=== PATIENT | male | born 1975 | race Caucasian/White ===

== ENCOUNTER 2016-07-30 05:21 | Emergency (ER) | payer BC, OTHER ==
[~2016-07-30] VITALS: Ht 180.3 cm; Wt 100.0 kg
[2016-07-30 05:24] VITALS: Ht 180.3 cm; Wt 100.0 kg
[2016-07-30] MEDS ORDERED: BACTDS PO (06:29)
[2016-07-30] MEDS ORDERED: IBUP-1542 PO (06:29)
[2016-07-30] MEDS ORDERED: CEPH-443 PO (06:29)
[2016-07-30] MEDS ORDERED: TRIMETHOPRIM/SULFAMETHOX (DS) TAB PO ONE (06:30)
[2016-07-30] MEDS ORDERED: CEPHALEXIN 500 MG CAP PO ONE (06:30)
--- NOTE | 2016-07-30 06:41 | ERD ---
ER Documentation Chief Complaint Date/Time DATE: 07/30/16 TIME: 06:38 Chief Complaint abscess on scotum popped in shower HPI 40-year-old male otherwise healthy no history diabetes comes in with scrotal abscess that drained in the shower just prior to arrival. Patient states that he has had this for about 10 days, he saw a urologist at the onset who recommended a CT scan, he has a lab slip for her to be done tomorrow. Patient saw Dr. Lock last week. He states that is slowly gotten larger, and during the shower prior to work today he notes that there is a small amount of blood that drained from it. Pain is localized, no fevers or chills. He denies dysuria, urgency or frequency or hematuria. ROS All systems reviewed and are negative except as per history of present illness. Medications Home Meds Active Scripts Ibuprofen* (Motrin*) 600 Mg Tab, 600 MG PO Q6, #30 TAB Prov:NAPOLEON LYONS PA-C 07/30/16 Sulfamethoxazole-Trimethoprim* (Bactrim* DS) 800-160 Mg Tab, 1 TAB PO BID for 5 Days, TAB Prov:NAPOLEON LYONS PA-C 07/30/16 Cephalexin* (Keflex*) 500 Mg Capsule, 500 MG PO QID for 5 Days, CAP Prov:NAPOLEON LYONS PA-C 07/30/16 Allergies Allergies: Coded Allergies: No Known Allergy (Unverified , 07/06/13) PMhx/Soc Medical and Surgical Hx: pt denies Surgical Hx History of Surgery: No Anesthesia Reaction: No Hx Neurological Disorder: No Hx Respiratory Disorders: No Hx Cardiac Disorders: No Hx Psychiatric Problems: No Hx Miscellaneous Medical Probl: Yes (HTN) Hx Alcohol Use: Yes (used to drink- 5-6 beers/ day) Hx Substance Use: No Hx Tobacco Use: Yes Smoking Status: Former smoker Physical Exam Vitals Vital Signs Date Time Temp Pulse Resp B/P Pulse Ox O2 Delivery O2 Flow Rate FiO2 07/30/16 05:24 98.1 82 18 132/96 96 Physical Exam General: Well-developed, well-nourished. The patient appears in no acute distress. HEENT: Head is normocephalic, atraumatic. No scleral icterus. Neck: Supple. Nontender. Lungs: Clear to auscultation. Normal air movement. Heart: Regular rate and rhythm. S1 and S2 are normal. No murmurs, gallops, or rubs. Abdomen: Soft, nontender, nondistended. Bowel sounds are normoactive. Extremities: No clubbing or cyanosis. Normal pulses. Moving extremities x 4. No weakness. Exam: Scrotum: Normal, no pain, no erythema Hernia: None Testes/Epid: Non-tender w/ normal lie Cremaster: Reflex intact Lymph: No inguinal lymphadenopathy Discharge: None Skin: In the midline there is a 2.5 cm area of fluctuance, there is a small opening at the base of it is in the anterior portion of the scrotum, it is draining a small amount of blood, and pus. Neurologic: Alert and oriented 3. No focal deficits. Skin: Normal turgor. No rash or lesions. Results 24 hrs Current Medications Medications (Trade) Dose Ordered Sig/Matteo Route PRN Reason Start Time Stop Time Status Last Admin Dose Admin Cephalexin (Keflex) 500 mg ONCE ONCE PO 07/30/16 06:30 07/30/16 06:31 DC 07/30/16 06:35 Trimethoprim/ Sulfamethoxazole (Bactrim (Ds)) 1 tab ONCE ONCE PO 07/30/16 06:30 07/30/16 06:31 DC 07/30/16 06:35 Procedures/MDM ED course: At the opening portion, I applied gentle pressure and pus drained, there is a small amount of blood that followed, hemostasis achieved. MDM: 40-year-old male comes in with an abscess on his scrotum, it spontaneously drained in the shower today, I was able to apply gentle pressure which alleviated his pain entirely, he rates his pain 0 out of 10 after but the pus was removed. He does see a urologist already for this, I stated that given that it was an abscess he may or may not need to go through this with a CT scan , he may call his urologist today before he goes in. I do not see evidence of epididymitis, cellulitis, Lazara's gangrene, torsion, urethritis. Departure Diagnosis: Primary Impression: Scrotal abscess Condition: Good Patient Instructions: Abscess Drainage Additional Instructions: Wound check in 2 days NAPOLEON LYONS PA-C Jul 30, 2016 06:41
== END 2016-07-30 06:36 | disposition home or self-care (01) ==
LOC: FTE 05:21
DX: N49.2 Inflammatory disorders of scrotum (principal); I10 Essential (primary) hypertension; Z87.891 Personal history of nicotine dependence
CPT/HCPCS: 99284